=== PATIENT | male | born 1945 | race Caucasian/White ===

== ENCOUNTER 2016-10-12 19:13 | Inpatient (IN) | payer OTHER ==
[~2016-10-12] VITALS: Ht 182.9 cm; Wt 97.5 kg
[~2016-10-12 19:13] MED LIST: ASPIR 8181 MG PO; AVAPRO300 MG PO; BAYER GENUINE325 MG PO; CALCIUM 600-D 61 TAB PO; CALTRATE 600600 MG PO; CENTRUM1 TA2 PO; CRESTOR 5MG5 MG PO; CRESTOR20 MG PO; DILTIAZEM 24HR240 MG PO; EFFIENT10 MG PO; FISH OIL1000 MG PO; FLOVENT INH; IMDUR30 MG PO; PANTOPRAZOLE SO40 MG PO; PROTONIX 20MG T20 MG PO; RANEXA 500MG500 MG PO; RANEXA1000 MG PO; SINGULAIR10 M1 PO; VENTOLIN1 PUF INH; VIBRAMYCIN100 MG PO
--- NOTE | 2016-10-12 19:16 | NUR ---
PT IN [facility] FOR EKG
--- NOTE | 2016-10-12 19:34 | NUR ---
TRIAGE: PATIENT TO ER FROM HOME STATES "FEELING LIKE I DID WHEN I NEEDED MY STENT," HX 4 CARDIAC STENTS. EKG OBTAINED, NSR. PATIENT STATES "FEEL LIKE THERE IS AN EXTRA BEAT ON AND OFF X 3 WEEKS." PATIENT ALSO REPORTING INTERMITTENT SHARP CP, WAKING HIM FROM SLEEP. REPORTING EXERTIONAL SOB INCREASED X 3 WEEKS, HX ASTHMA. DENIES SOB. ALSO REPORTING BILATERAL PERIPHERAL EDEMA INC X FEW WEEKS. PLACED ON PRICE ECONOMIST ON ARRIVAL.
--- NOTE | 2016-10-12 19:53 | ED CARDIAC/CP/PALPITATIONS ---
History of Present Illness General Chief Complaint: Chest Pain Stated Complaint: CHEST PAIN X3 DAYS Source: patient Exam Limitations: no limitations Vital Signs & Intake/Output Vital Signs & Intake/Output Vital Signs Date Time Temp Pulse Resp B/P Pulse O2 O2 Flow FiO2 Ox Delivery Rate 10/14 1002 63 116/70 10/14 1001 63 116/70 10/14 1001 63 116/70 10/14 0801 97.8 63 18 116/70 95 Room Air 10/14 0800 Room Air 10/13 2242 62 116/68 10/13 2235 98.4 82 18 116/68 95 Room Air 10/13 1635 98.2 73 17 124/67 95 Room Air 10/13 1115 166/66 10/13 1115 166/66 10/13 1115 11666 ED Intake and Output 10/14 0000 10/13 1200 Intake Total 1200 Output Total Balance 1200 Intake, Oral 1200 Patient 215 lb Weight Allergies Coded Allergies: Penicillins (Intermediate, SWELLING 10/12/16) Reconcile Medications Aspirin (Ecotrin) 81 MG TABLET.DR 1 TAB PO DAILY HEART (Reported) CALCIUM CARBONATE/VITAMIN D3 (Calcium 600 + Vit D Tablet) 600 MG/400 IU TAB 1 TAB PO DAILY SUPPLEMENT (Reported) Diltiazem HCl (Diltiazem 24HR ER) 240 MG CAP.ER.24H 1 CAP PO AT BEDTIME HTN ( Reported) Irbesartan (Avapro) 300 MG TAB 1 TAB PO DAILY HTN (Reported) Isosorbide Mononitrate (Imdur) 30 MG TAB.ER.24H 1 TAB PO DAILY CHEST PAIN Magnesium Oxide (Magnesium) 500 MG CAPSULE 1 CAP PO DAILY SUPPLEMENT ( Reported) Montelukast Sodium (Singulair) 10 MG TABLET 1 TAB PO AT BEDTIME ASTHMA ( Reported) MULTIVITAMIN/IRON/FOLIC ACID (Centrum Complete Multivit Tab) 18 MG IRON-400 MCG TABLET 1 TAB PO DAILY SUPPLEMENT (Reported) OMEGA-3/DHA/EPA/FISH OIL ([place]-3 Fish Oil 1,000 MG Sftg) 300 MG-1,000 MG CAPSULE 1 TAB PO DAILY SUPPLEMENT (Reported) Pantoprazole Sodium (Protonix) 20 MG TABLET.DR 1 TAB PO DAILY AC ACID REFLUX (Reported) Ranolazine (Ranexa 500MG) 500 MG TAB.ER.12H 1 TAB PO BID HEART, CHEST PAIN ( Reported) Rosuvastatin Calcium (Crestor) 20 MG TABLET 1 TAB PO DAILY CHOLESTEROL ( Reported) Triage Note: TRIAGE: PATIENT TO ER FROM HOME STATES "FEELING LIKE I DID WHEN I NEEDED MY STENT," HX 4 CARDIAC STENTS. EKG OBTAINED, NSR. PATIENT STATES "FEEL LIKE THERE IS AN EXTRA BEAT ON AND OFF X 3 WEEKS." PATIENT ALSO REPORTING INTERMITTENT SHARP CP, WAKING HIM FROM SLEEP. REPORTING EXERTIONAL SOB INCREASED X 3 WEEKS, HX ASTHMA. DENIES SOB. ALSO REPORTING BILATERAL PERIPHERAL EDEMA INC X FEW WEEKS. PLACED ON VEGETABLE CUTTER ON ARRIVAL. Triage Nurses Notes Reviewed? yes HPI: Patient presents for evaluation of intermittent episodes of sharp left sided chest pain that began about 2 weeks ago or perhaps more. Patient states the episodes are getting stronger. In addition he experiences a left periscapular pain and a cold feeling in the left hand. The patient denies pain currently. His last episode occurred just after the EKG taken here in the emergency department. That particular episode lasted about 20 seconds. Patient states his episodes occur every 2-4 minutes and last seconds at a time. He denies any associated orthopnea diaphoresis or dyspnea but does state he has had intermittent severe exertional dyspnea when walking up and down his driveway. He is also noted bilateral lower extremity edema over the past 4 weeks that he has never had before. He is a nonsmoker. Past History Travel History Traveled to [place] past 21 day No Medical History Any Pertinent Medical History? see below for history Neurological: NONE EENT: NONE Cardiovascular: hypertension, 4 STENTS Respiratory: asthma Gastrointestinal: GERD Hepatic: NONE Renal: NONE Musculoskeletal: NONE Psychiatric: NONE Endocrine: NONE Blood Disorders: NONE Cancer(s): NONE COUNTER WAITER/Reproductive: NONE History of MRSA: No History of VRE: No History of CDIFF: No Surgical History Surgical History: non-contributory Psychosocial History Who do you live with Spouse What is your primary language Spanish Tobacco Use: Never used Family History Family History, If Any: FATHER (HTN, CAD, HLD, LEUKEMIA). . BROTHER (HTN, CAD, HLD, ND <50 Y/O). Hx Contributory? No Review of Systems Review of Systems Constitutional: Reports: no symptoms. EENTM: Reports: no symptoms. Respiratory: Reports: no symptoms. Cardiovascular: Reports: see HPI. GI: Reports: no symptoms. Genitourinary: Reports: no symptoms. Musculoskeletal: Reports: no symptoms. Skin: Reports: see HPI. Neurological/Psychological: Reports: no symptoms. Hematologic/Endocrine: Reports: no symptoms. Immunologic/Allergic: Reports: no symptoms. All Other Systems: Reviewed and Negative Physical Exam Physical Exam Cardiovascular: SEE BELOW Comments: Gen.: Well-nourished, well-developed, no acute respiratory distress. Head: Normocephalic, atraumatic. Eyes: Normal inspection bilaterally Ears: Normal inspection bilaterally Nose: Normal inspection Throat/mouth : Moist mucosa Neck: Supple, full range of motion, no goiter Heart: Regular rate and rhythm, no murmurs rubs or gallops Lungs: Clear to auscultation bilaterally with normal air entry Chest: Nontender Back: Normal range of motion Abdomen: Soft, nontender, nondistended, normal bowel sounds Extremities: Normal range of motion grossly, equal radial pulses, no cyanosis clubbing or edema Neurologic: Cranial nerves grossly intact, speech is clear Skin: warm and dry Psychiatric: Calm, cooperative, no apparent delusions or hallucinations Core Measures ACS in differential dx? Yes Severe Sepsis Present: No Septic Shock Present: No Progress Differential Diagnosis: aortic dissection, CAD, DYSRHYTHMIA, AORTIC DISSECTION, MUSCULOSKELETAL PAIN, ACID REFLUX Plan of Care: Orders Procedure Date/time Status Heart Healthy Diet 10/14 L Active Nothing by Mouth 10/14 B Complete Change service to 10/14 0800 Active Change service to 10/14 0739 Active DIPYRIDAMOLE STRESS W/NUC IMAG 10/14 UNK Active Current Medications Sig/Bravo Start time Last Medication Dose Stop Time Status Admin Enoxaparin Sodium 40 MG DAILY 10/14 1000 AC (Lovenox) Acetaminophen 650 MG Q6P PRN 10/13 0015 AC (Tylenol) Laboratory Tests 10/14/16 0350: Anion Gap 10, Estimated GFR > 60, BUN/Creatinine Ratio 10.0, Triglycerides 131, Cholesterol 116, LDL Cholesterol, Calc 52 L, HDL Cholesterol 38 L, Cholesterol /HDL Ratio 3 Diagnostic Imaging: Discussed w/RAD: CT Scan. Radiology Impression: PATIENT: VASILE HARRINGTON PRESENT AGE: 71 PATIENT ACCOUNT NO: [id number] : 47 LOCATION: [facility] ORDERING PHYSICIAN: AVEL BAUTISTA MD SERVICE DATE: 10/12/16 EXAM TYPE: CAT - CTA CHEST-AORTIC DISSECTION EXAMINATION: CT ANGIOGRAM CHEST CLINICAL INFORMATION: Chest pain, diminished right renal pole cyst. COMPARISON: CTA chest 07/24/2015 TECHNIQUE: Volumetric helical CT imaging was performed through the chest before and after the administration of 125 mL of Optiray 350 intravenous contrast. Extensive vascular post-processing including two-dimensional and three -dimensional reformatted images were created and reviewed on an independent workstation. DLP: 896.1 mGy-cm. FINDINGS: The aortic wall is not hyperdense on the noncontrast images. Review of the postcontrast images demonstrate a normal caliber thoracic aorta without evidence of acute dissection. A few calcifications are present at the aortic arch. There is extensive calcification and possible coronary artery stents placed within the left anterior descending and left circumflex coronary arteries. Calcifications versus stent are also noted within the right coronary artery. The heart size is mildly enlarged. There is no pericardial effusion. Although this study was not optimized for the pulmonary arteries there is no filling defect within the central, lobar, or segmental pulmonary vasculature. There is a large hiatal hernia. There are no pathologically enlarged mediastinal lymph nodes. The lungs are clear without focal consolidation or effusion. Multiple pulmonary nodules are redemonstrated as described on previous studies. The largest is located at the left lung base measuring 0.5 cm in size. This is similar compared to the 08/11/2015 study. Subpleural pulmonary nodule also identified at the left lung base posteriorly measuring 0.5 cm in diameter similar to the 08/11/2015 exam. Pulmonary nodule at the right lung base measures 0.5 cm in size is similar compared to the 2014 study. UPPER ABDOMEN: The imaged portions of the upper abdominal solid viscera are normal in appearance aside from the large hiatal hernia. Patient is status post cholecystectomy. OSSEOUS STRUCTURES: There are mild degenerative changes of the thoracic spine. IMPRESSION: 1. Normal caliber thoracic aorta without evidence for acute dissection. 2. Large hiatal hernia. 3. Clear lungs. No pneumonia. 4. Stable pulmonary nodules compared to 08/11/2015. DICTATED BY: ANTHONY PHILIP MD DATE/TIME DICTATED:10/12/162114 ORCHESTRA DIRECTOR:OPAL DATE/TIME TRANSCRIBED:10/12/162114 CONFIDENTIAL, DO NOT COPY WITHOUT APPROPRIATE AUTHORIZATION. <Electronically signed in Other Vendor System> SIGNED BY: ANTHONY PHILIP MD 10/12/162129 Initial ED EKG: NSR, rate (75), nonspecific ST T wave chg (FLAT t, rsr PRIME IN v2) Prior EKG: changed (SEE BELOW) Comments: Patient has a flattened T-wave and an RSR prime pattern in V2 on his EKG. Prior EKG does not show these changes. I suspect lead placement as the patient's current V2 lead appears very similar to V1. Departure Departure Disposition: STILL A PATIENT Condition: Stable Clinical Impression Primary Impression: Unstable angina Referrals: BLAIRE FONTENOT,ALEK Jackson (PCP/Family) Departure Forms: Customer Survey General Discharge Information Admission Note Spoke With: TYLER LEAHY MD Documentation of Exam: Documentation of any treatments & extenuating circumstances including Concerns Regarding Discharge (functional status, medication knowledge or non-compliance, living conditions, etc.) that warrant an admission rather than observation: This patient is a middle-aged male with known coronary artery disease and history of hypertension who presents with worsening chest pain episodes over the past 2 weeks. He is at high risk of a heart attack even his description of what appears to be crescendo angina. His pains are similar to pains he experienced prior to his coronary stenting. The patient is also describing worsening exertional dyspnea and intermittent heart palpitations. Given this I do not feel he is a good candidate for outpatient management as I feel his exertional dyspnea with him at risk of precipitating a heart attack and also make it very difficult for him to comply with outpatient treatment. His heart palpitations and chest pain episodes also necessitate continuous cardiac monitoring for the possibility of dysrhythmias. Cardiology consultation should be considered and a field the patient also requires echocardiogram and stress testing. Serial troponins and EKGs should also be obtained. The patient also has a history of hiatal hernia so a GI consult should be considered given the possibility that these pains are in fact due to acid reflux or the hiatal hernia. The patient will require a multiple day hospitalization. Critical Care Note Critical Care Note Critical Care Time: 30-74 min
--- NOTE | 2016-10-12 20:00 | NUR ---
PT BLOOD SENT TO THE LAB BL,SST,LAV
[2016-10-12 20:03] LABS: ABSOLUTE BASOPHIL COUNT 0 /CUMM (0.0-0.2); ABSOLUTE EOSINOPHIL COUNT 0.3 /CUMM (0.0-0.7); ABSOLUTE GRANULOCYTE CT 3.7 /CUMM (1.4-6.5); ABSOLUTE LYMPH COUNT 1.5 /CUMM (1.2-3.4); ABSOLUTE MONOCYTE COUNT 0.7 /CUMM (0.10-0.60); BASOPHIL % 0.3 % (0.0-2.0); GRANULOCYTE % 58.6 % (42.2-75.2); HEMATOCRIT 44.1 % (42-52); MEAN CORPUSCULAR HGB 30.9 PG (27.0-31.0); MEAN CORPUSCULAR VOLUME 90.9 FL (80.0-94.0); MEAN PLATELET VOLUME 8.1 FL (7.4-10.4); PLATELET COUNT 208 /CUMM (130-400); RBC DISTRIBUTION WIDTH 13.3 % (11.5-14.5); RED BLOOD CELL CT 4.85 /CUMM (4.70-6.10); WHITE BLOOD CELL COUNT 6.3 /CUMM (4.8-10.8)
--- NOTE | 2016-10-12 20:48 | NUR ---
PT TO CT SCAN
--- NOTE | 2016-10-12 21:00 | NUR ---
PT BACK FROM CT
--- NOTE | 2016-10-12 21:00 | NUR ---
PT A/O X4. RESP UNLABORED. DENIES CP AND SOB. NO APPARENT DISTRESS
--- NOTE | 2016-10-12 21:30 | CT SCAN REPORT ---
EXAMINATION: CT ANGIOGRAM CHEST CLINICAL INFORMATION: Chest pain, diminished right renal pole cyst. COMPARISON: CTA chest 07/24/2015 TECHNIQUE: Volumetric helical CT imaging was performed through the chest before and after the administration of 125 mL of Optiray 350 intravenous contrast. Extensive vascular post-processing including two-dimensional and three-dimensional reformatted images were created and reviewed on an independent workstation. DLP: 896.1 mGy-cm. FINDINGS: The aortic wall is not hyperdense on the noncontrast images. Review of the postcontrast images demonstrate a normal caliber thoracic aorta without evidence of acute dissection. A few calcifications are present at the aortic arch. There is extensive calcification and possible coronary artery stents placed within the left anterior descending and left circumflex coronary arteries. Calcifications versus stent are also noted within the right coronary artery. The heart size is mildly enlarged. There is no pericardial effusion. Although this study was not optimized for the pulmonary arteries there is no filling defect within the central, lobar, or segmental pulmonary vasculature. There is a large hiatal hernia. There are no pathologically enlarged mediastinal lymph nodes. The lungs are clear without focal consolidation or effusion. Multiple pulmonary nodules are redemonstrated as described on previous studies. The largest is located at the left lung base measuring 0.5 cm in size. This is similar compared to the 08/11/2015 study. Subpleural pulmonary nodule also identified at the left lung base posteriorly measuring 0.5 cm in diameter similar to the 08/11/2015 exam. Pulmonary nodule at the right lung base measures 0.5 cm in size is similar compared to the 08/11/2015 study. UPPER ABDOMEN: The imaged portions of the upper abdominal solid viscera are normal in appearance aside from the large hiatal hernia. Patient is status post cholecystectomy. OSSEOUS STRUCTURES: There are mild degenerative changes of the thoracic spine. IMPRESSION: 1. Normal caliber thoracic aorta without evidence for acute dissection. 2. Large hiatal hernia. 3. Clear lungs. No pneumonia. 4. Stable pulmonary nodules compared to 08/11/2015.
--- NOTE | 2016-10-12 22:05 | NUR ---
PT APPEARS COMFORTBALE. DENIES CP AND SOB. NO APPARENT DISTRESS. WILL CONTINUE TO MONITOR.
--- NOTE | 2016-10-12 23:07 | NUR ---
PT AMBULATORY TO BATHROOM. TOLERTED WELL
--- NOTE | 2016-10-12 23:27 | NUR ---
HOUSE STAFF AT BEDSIDE
[2016-10-12] MEDS ORDERED: MAGNESIUM500 M2 PO (23:47)
--- NOTE | 2016-10-13 00:11 | History & Physical ---
CAROLE FONTENOT,VAIBHAV 10/13/16 0009: General Information and HPI MD Statement: I have seen and personally examined VASILE HARRINGTON and documented this H&P. The patient is a 71 year old M who presented with a patient stated chief complaint of [intermittent chest pain associated with intermittent exertional dyspnea]. Source of Information: patient Exam Limitations: no limitations History of Present Illness: This is 71-year-old male with past medical history of CAD status post stent placement, hypertension, hyperlipidemia, GERD, hiatal hernia presented from home with chief complaint of intermittent chest pain 4 weeks associated with occasional exertional shortness of breath. Patient started having intermittent semi-dull pinprick like chest pain prior to Alexa. He's been experiencing this episode ache intermittent pain with each episode lasted for a few seconds and subsides spontaneously. For past couple of days he noted his pain episodes, more frequently sometimes even 4-5 times per minute. He claims that he had similar symptoms 10 years back when he was diagnosed with WV. His chest pain symptoms are not related with any physical exertion or food ingestion and come randomly. He also reports having occasional exertional dyspnea while walking up and down in his driveway (400 yards). He reports that he was fine this afternoon around 2 PM then he started having this episode again, which were more frequent about 4 or 5 episodes per minute with each episode lasted for a few seconds and subsided spontaneously. He felt that this time his symptoms were more stronger than in the past, so he came to ER for further evaluation. He also claims feeling extra heart beats occasionally and claims having bilateral lower extremity edema for past few weeks. He denies any chest pressure, dizziness, lightheadedness, shortness of breath at rest, nausea, vomiting, abdominal pain, urinary symptoms. He is following up with tax auditor Bebeto Inman MD. He was last evaluated by him in May 2016 at that time his workup was completely fine. As per the patient he had echocardiogram in last one year which was normal and had Holter monitor one and half years ago which was also noted normal. His echo done at [place] in February 2014 revealed normal EF of 60-65%. Patient had previous stent placement to. This marginal artery and circumflex AV groove artery 10 years ago. His repeat cardiac cath done in October 2013 revealed 20% left main coronary artery disease, 40% LAD disease, 40% and 50% sequential for staghorn renal artery disease, diffuse restenosis of circumflex AV groove stent status post restenting and 30% RCA disease. Allergies/Medications Allergies: Coded Allergies: Penicillins (Intermediate, SWELLING 10/12/16) Home Med list Aspirin (Ecotrin) 81 MG TABLET.DR 1 TAB PO DAILY HEART (Reported) CALCIUM CARBONATE/VITAMIN D3 (Calcium 600 + Vit D Tablet) 600 MG/400 IU TAB 1 TAB PO DAILY SUPPLEMENT (Reported) Diltiazem HCl (Diltiazem 24HR ER) 240 MG CAP.ER.24H 1 CAP PO AT BEDTIME HTN ( Reported) Irbesartan (Avapro) 300 MG TAB 1 TAB PO DAILY HTN (Reported) Isosorbide Mononitrate (Imdur) 30 MG TAB.ER.24H 1 TAB PO DAILY CHEST PAIN Magnesium Oxide (Magnesium) 500 MG CAPSULE 1 CAP PO DAILY SUPPLEMENT ( Reported) Montelukast Sodium (Singulair) 10 MG TABLET 1 TAB PO AT BEDTIME ASTHMA ( Reported) MULTIVITAMIN/IRON/FOLIC ACID (Centrum Complete Multivit Tab) 18 MG IRON-400 MCG TABLET 1 TAB PO DAILY SUPPLEMENT (Reported) OMEGA-3/DHA/EPA/FISH OIL ([place]-3 Fish Oil 1,000 MG Sftg) 300 MG-1,000 MG CAPSULE 1 TAB PO DAILY SUPPLEMENT (Reported) Pantoprazole Sodium (Protonix) 20 MG TABLET.DR 1 TAB PO DAILY AC ACID REFLUX (Reported) Ranolazine (Ranexa 500MG) 500 MG TAB.ER.12H 1 TAB PO BID HEART, CHEST PAIN ( Reported) Rosuvastatin Calcium (Crestor) 20 MG TABLET 1 TAB PO DAILY CHOLESTEROL ( Reported) Compliance With Home Meds: GOOD Past History Travel History Traveled to [place] past 21 day No Medical History Neurological: NONE EENT: NONE Cardiovascular: CAD, hypertension, hyperlipidemia, 4 STENTS Respiratory: asthma Gastrointestinal: GERD Hepatic: NONE Renal: NONE Musculoskeletal: NONE Psychiatric: NONE Endocrine: NONE Blood Disorders: NONE Cancer(s): NONE REFRIGERATION MECHANIC/Reproductive: NONE History of MRSA: No History of VRE: No History of CDIFF: No Surgical History Surgical History: cholecystectomy, hernia repair-inguinal ECHO Results (as available) Date of last Echo 02/23/14 EF% 60 Past Family/Social History Family History Relations & Conditions if any FATHER (HTN, CAD, HLD, LEUKEMIA). . BROTHER (HTN, CAD, HLD, W[place] <50 Y/O). Psychosocial History Where do you live? Home Who Do You Live With? spouse Services at Home: None Primary Language: Bangladeshi Smoking Status: Never Smoked ETOH Use: occasional use Illicit Drug Use: denies illicit drug use Living Will? yes Functional Ability ADLs Independent: dressing, eating, toileting, bathing. Ambulation: independent IADLs Independent: shopping, housework, finances, food prep, telephone, transportation , medication admin. Review of Systems Review of Systems Constitutional: Reports: see HPI. Exam & Diagnostic Data Last 24 Hrs of Vital Signs/I&O Vital Signs Date Time Temp Pulse Resp B/P Pulse O2 O2 Flow FiO2 Ox Delivery Rate 10/12 2254 97.1 72 18 145/90 96 10/12 2100 96.7 76 18 145/74 10/12 1927 98.4 75 18 151/83 97 Room Air Intake & Output 10/13 0800 10/13 0000 10/12 1600 Intake Total Output Total Balance Patient 215 lb Weight Physical Exam General Appearance Alert, Oriented X3, Cooperative, No Acute Distress Skin No Rashes HEENT Atraumatic, PERRLA, EOMI, Mucous Membr. moist/pink Neck Supple, No JVD Lymphatic Cervical nl Cardiovascular Regular Rate, Normal S1, Normal S2, No Murmurs Lungs Clear to Auscultation, Normal Air Movement Abdomen Normal Bowel Sounds, Soft Neurological Normal Speech, Strength at 5/5 X4 Ext, Normal Tone, Sensation Intact, Cranial Nerves 3-12 NL Extremities No Edema, Normal Pulses Vascular Pulses Symmetrical Last 24 Hrs of Labs/Toby: Laboratory Tests 10/12/161999: Anion Gap 10, Estimated GFR > 60, BUN/Creatinine Ratio 11.8, Glucose 82, Calcium 9.1, Magnesium 2.1, Troponin I < 0.01, CBC w Diff NO MAN DIFF REQ, RBC 4.85, MCV 90.9, MCH 30.9, RDW 13.3, MPV 8.1, Gran % 58.6, Lymphocytes % 24.2, Monocytes % 11.9 H, Eosinophils % 5.0, Basophils % 0.3, Absolute Granulocytes 3.7, Absolute Lymphocytes 1.5, Absolute Monocytes 0.7 H, Absolute Eosinophils 0.3, Absolute Basophils 0, PUBS MCHC 34.0 Diagnostic Data EKG Results Normal sinus rhythm with heart rate of 75, no acute ST-T wave changes, QTC 429 CXR Results NONE Other Results CTA chest aortic dissection protocol: IMPRESSION: 1. Normal caliber thoracic aorta without evidence for acute dissection. 2. Large hiatal hernia. 3. Clear lungs. No pneumonia. 4. Stable pulmonary nodules compared to 08/11/2015. Assessment/Plan Assessment: This is 71-year-old male with past medical history of CAD status post stenting, hypertension, hyperlipidemia, GERD, hiatal hernia presented to ED with chief complaint of 4 weeks history of intermittent sharp chest pain associated with occasional palpitation and shortness of breath. On evaluation patient noted chest pain free with his EKG normal and first set of troponin negative. Will admit to telemetry floor. Possibility of symptoms related with GERD also need to be ruled out as patient has large hiatal hernia 1. Atypical chest pain - Patient has strong family history, the nature of chest pain is similar to his first [place], and height team's score of 4 suggestive of 20% risk of all cause mortality related with [place], will admit patient to telemetry -Continue shelter monitor for any arrhythmia - Serial troponin and EKG to rule out underlying coronary artery disease - Defer echocardiogram to primary tax auditor - Continue aspirin, statin, Imdur and Ranexa - Consider adding beta león - Cardiology consult in a.m. 2. Palpitation - Continue shelter monitor - Continue Cardizem 240 mg daily 3. Hypertension - Continue home dose ARB 4. Hyperlipidemia - Continue statin 5. GERD/hiatal hernia - Continue Prilosec - If symptoms persist and cardiology workup negative consider GI consult 6. History of asthma Continue Singulair 7. DVT prophylaxis Subcutaneous Lovenox 8. Full code As Ranked By This Provider Problem List: 1. Palpitations 2. Chest pain Core Measures/Miscellaneous Acute Coronary Syndrome ACS Diagnosis: No Cerebrovascular Accident CVA/TIA Diagnosis: No Congestive Heart Failure CHF Diagnosis: No Venous Thromboembolism VTE Risk Factors: Age > 40 VTE Prophylaxis Ordered Inpt: [facility] d/t: No contraindications No VTE Pharm Prophylaxis d/t: No contraindications VTE Diagnosis: No VTE Type: NONE VTE Confirmed by (Test): NONE Severe Sepsis Severe Sepsis Present: No Septic Shock Septic Shock Present: No Miscellaneous Documentation Attending Case Discussed With: TYLRE LEAHY MD Primary Care Physician: ALEK RUDD MD Patient sees these Specialists Freight Agent Dr. Bebeto Inman Level of Patient Care: Telemetry Consults Needed: Consulting Specialty: Cardiology TYLER LEAHY 10/13/16 0208: Attending MD Review Statement Attending Statement Attending MD Statement: examined this patient, discuss w/resident/PA/PROFESSOR OF ENVIRONMENTAL STUDIES, agreed w/resident/PA/PROFESSOR OF ENVIRONMENTAL STUDIES, reviewed EMR data (avail), reviewed images, amended to note Attending Assessment/Plan: Cc: Chest pain PMHx: CAD S/P stent, recent stress test October 2013, had dysrhythmia, HTN, HLD , asthma Patient has been noticing on and off chest pain since one month, sometimes pinprick sensations or sometimes heaviness lasting for a few seconds and resolving on its own, no aggravating or relieving factors. Patient does not notice this pain while doing any activity, always at rest. Initially when the pain started 4 weeks back it was radiating to jaw and left arm and subscapular region, but currently it's nonradiating. Patient has some days without chest pain, and some days multiple episodes. But on the day of admission patient started to notice increased frequency of these episodes since 4 PM, feeling restless so he came to ER around 7 PM. He also noticed intermittent extra beats, occasional dyspnea on exertion, on and off leg swellings. Vitals: Afebrile, HR, RR, BP, O2 saturation within acceptable range. For examination: A O 3, anxious, no acute distress, neck supple, no lymphadenopathy , no JVD, mucosa moist, CVS: S1-S2, RRR, No murmurs RS: Clear air entry bilaterally present. Abdomen: Soft, NT, ND, no obvious masses, bowel sounds present, no dependent edema, no obvious skin rashes or inflammation, no focal neurological deficit. Labs: CBC, BMP, troponin within normal range. CTA chest: No obvious acute abnormality. Large hiatus hernia. EKG: Normal sinus rhythm, no ST T-wave changes. Assessment and plan #1 atypical chest pain: At rest, no aggravating or relieving factors. Given patient's extensive history of CAD, admitted with suspicion of unstable angina, consult cardiology in a.m., serial EKG, serial troponin, telemetry monitoring. Further workup according to cardiology opinion, patient is known to Dr. Hinkle. Patient has hiatus hernia, which can be contributing factor for pain. Continue aspirin and statin #2 HTN, HLD, asthma, hiatus hernia and history of CAD status post stents: Continue aspirin, diltiazem, irbesartan, Imdur, Ranexa, Crestor, Singulair, Protonix. #3 continue DVT prophylaxis with Lovenox, adequate pain control.
--- NOTE | 2016-10-13 00:28 | NUR ---
BED ASSIGNED 180-02
--- NOTE | 2016-10-13 00:52 | NUR ---
PT A/O X4. RESP UNLABORED. DENIES CP AND SOB. SKIN WARM AND DRY. NO APPARENT DISTRESS.
[2016-10-13 01:41] VITALS: BP 137/82
--- NOTE | 2016-10-13 02:10 | Admission Certification ---
Admission Certification Certification Statement - As attending physician, I certify that at the time of - admission, based on clinical presentation, severity of - symptoms, need for further diagnostic testing and - therapeutic interventions, and risk of adverse outcomes - without in-hospital treatment, in my clinical assessment, - this patient requires an acute hospital stay for a minimum - of two nights or longer. I have also considered psychsocial - factors such as support system, advanced age, financial - issues, cognitive issues, and failed out-patient treatments, - past re-admission history, safety of patient, and lack of - compliance as applicable. Specific rationale supporting this admission is: Chest pain, suspected unstable angina, history of coronary artery disease status post stenting
[2016-10-13 08:33] VITALS: BP 118/69
--- NOTE | 2016-10-13 11:27 | PN- Att Addend ---
Attending Addendum Attending Brief Note 71-year-old male with past medical history significant for coronary artery disease status post stents, hypertension, hyperlipidemia and asthma has been admitted on the floor for progressive intermittent chest pain for the last couple of months. He was seen and examined on the bedside, lying comfortably and chest pain-free. His serial troponins and EKGs were normal. Vitals stable and unremarkable physical examination. He follows up with Dr. Inman as his code machine operator. Will follow further recommendations from the code machine operator. Patient previously had episodes of dysrhythmias and reportedly improved by taking magnesium oxide. We will continue the rest of his cardiac medications and will continue to monitor over the telemetry for the next 24 hours.
--- NOTE | 2016-10-13 15:55 | Cons- Cardiology ---
General Information and HPI Consulting Request Date of Consult: 10/13/16 Requested By: TYLER LEAHY MD Reason for Consult: Chest pain syndrome; history of coronary artery disease Source of Information: patient Exam Limitations: no limitations History of Present Illness: The patient is a 71-year-old male, appearing other than his stated age, who is regular director of rehabilitation is Dr. Bebeto Ro who I am covering for today. The patient has a past medical history of coronary artery disease, status post multiple stents, hypertension, hyperlipidemia, reflux disease, etc. His last cardiac catheterization 2 years ago showed patent stents. The patient is now admitted to the hospital via the emergency room with intermittent episodes of chest discomfort over the last 4 weeks. Initially, the symptoms were exertional, more recently, they have also occurred at rest. By history, there appeared to be multiple over left mapping symptoms, some are suggestive of ventricular ectopy, others may be related to musculoskeletal symptoms, however, there are some symptoms which may be similar to his pre-stent anginal symptoms as well. Since being admitted, the patient has been asymptomatic. The symptoms began prior to Alexa. In addition, he has noted some exertional dyspnea. He does have a history of known ventricular ectopy as well. The ventricular ectopy symptoms did improved after the institution of oral magnesium supplements. Interestingly, the patient notes that he had resolution of the symptoms for. Of time after his chest CTA was performed yesterday. Allergies/Medications Allergies: Coded Allergies: Penicillins (Intermediate, SWELLING 10/12/16) Home Med List: Aspirin (Ecotrin) 81 MG TABLET.DR 1 TAB PO DAILY HEART (Reported) CALCIUM CARBONATE/VITAMIN D3 (Calcium 600 + Vit D Tablet) 600 MG/400 IU TAB 1 TAB PO DAILY SUPPLEMENT (Reported) Diltiazem HCl (Diltiazem 24HR ER) 240 MG CAP.ER.24H 1 CAP PO AT BEDTIME HTN ( Reported) Irbesartan (Avapro) 300 MG TAB 1 TAB PO DAILY HTN (Reported) Isosorbide Mononitrate (Imdur) 30 MG TAB.ER.24H 1 TAB PO DAILY CHEST PAIN Magnesium Oxide (Magnesium) 500 MG CAPSULE 1 CAP PO DAILY SUPPLEMENT ( Reported) Montelukast Sodium (Singulair) 10 MG TABLET 1 TAB PO AT BEDTIME ASTHMA ( Reported) MULTIVITAMIN/IRON/FOLIC ACID (Centrum Complete Multivit Tab) 18 MG IRON-400 MCG TABLET 1 TAB PO DAILY SUPPLEMENT (Reported) OMEGA-3/DHA/EPA/FISH OIL ([place]-3 Fish Oil 1,000 MG Sftg) 300 MG-1,000 MG CAPSULE 1 TAB PO DAILY SUPPLEMENT (Reported) Pantoprazole Sodium (Protonix) 20 MG TABLET.DR 1 TAB PO DAILY AC ACID REFLUX (Reported) Ranolazine (Ranexa 500MG) 500 MG TAB.ER.12H 1 TAB PO BID HEART, CHEST PAIN ( Reported) Rosuvastatin Calcium (Crestor) 20 MG TABLET 1 TAB PO DAILY CHOLESTEROL ( Reported) Current Medications: Current Medications Sig/Bravo Start time Last Medication Dose Route Stop Time Status Admin Acetaminophen 650 MG Q6P PRN 10/13 0015 AC PO Aspirin Buffered 81 MG DAILY 10/13 1000 AC 10/13 PO 1115 Atorvastatin Calcium 80 MG 1700 10/13 1700 AC PO Diltiazem HCl 240 MG AT BEDTIME 10/13 0100 AC 10/13 PO 0101 Enoxaparin Sodium 40 MG DAILY 10/14 1000 AC SC Fish Oil 1,050 MG DAILY 10/13 1000 AC 10/13 PO 1116 Isosorbide 30 MG DAILY 10/13 1000 AC 10/13 Mononitrate PO 1115 Losartan Potassium 100 MG DAILY 10/13 1000 AC 10/13 PO 1115 Magnesium Oxide 400 MG DAILY 10/13 1000 AC 10/13 PO 1115 Montelukast Sodium 10 MG AT BEDTIME 10/13 0100 AC 10/13 PO 0101 Omeprazole 40 MG DAILY AC 10/13 0700 AC 10/13 PO 0751 Ranolazine 500 MG BID 10/13 0100 AC 10/13 PO 1115 Past History Travel History Traveled to [place] past 21 day No Medical History Blood Transfusion Hx: No Neurological: NONE EENT: NONE Cardiovascular: CAD, hypertension, hyperlipidemia, 4 STENTS Respiratory: asthma Gastrointestinal: GERD Hepatic: NONE Renal: NONE Musculoskeletal: NONE Psychiatric: NONE Endocrine: NONE Blood Disorders: NONE Cancer(s): NONE LANGUAGE ARTS TEACHER/Reproductive: NONE Surgical History Surgical History: cholecystectomy, hernia repair-inguinal Family History Relations & Conditions If Any: FATHER (HTN, CAD, HLD, LEUKEMIA). . BROTHER (HTN, CAD, HLD, [place] <50 Y/O). Psychosocial History Where Do You Live? Home Who Do You Live With? spouse Services at Home: None Primary Language: Georgian Smoking Status: Never Smoked ETOH Use: occasional use Illicit Drug Use: denies illicit drug use Living Will? yes Functional Ability ADLs Independent: dressing, eating, toileting, bathing. Ambulation: independent IADLs Independent: shopping, housework, finances, food prep, telephone, transportation , medication admin. ECHO Results (as available) Date of last Echo 02/23/14 EF% 60 Exam & Diagnostic Data Vital Signs and I&O Vital Signs Date Time Temp Pulse Resp B/P Pulse O2 O2 Flow FiO2 Ox Delivery Rate 10/13 1115 166/66 10/13 1115 166/66 10/13 1115 116/66 10/13 0833 97.9 69 18 118/69 94 Room Air 10/13 0141 97.6 77 20 137/82 95 Room Air 10/13 0053 97.9 77 18 138/69 96 10/12 2254 97.1 72 18 145/90 96 10/12 2100 96.7 76 18 145/74 10/12 1927 98.4 75 18 151/83 97 Room Air Intake & Output 10/13 1600 10/13 0800 10/13 0000 10/12 1600 10/12 0800 10/12 0000 Intake Total 720 Output Total Balance 720 Intake, Oral 720 Patient 215 lb 215 lb Weight Physical Exam: General Appearance Alert, Oriented X3, Cooperative, No Acute Distress Skin normal HEENT normal Neck Supple, No JVD, carotid shows normal bilaterally with no bruits Cardiovascular Regular Rate, Normal S1, Normal S2, 1/6 systolic murmur Lungs Clear to Auscultation, and percussion bilaterally; point tenderness noted at the mid left sternal border Abdomen Normal Bowel Sounds, Soft Neurological nonfocal Extremities No Edema, Normal Pulses Vascular Pulses Symmetrical Labs/Toby Results: Laboratory Tests 10/13 10/13 10/12 0610 0310 1999 Chemistry Sodium (137 - 145 mmol/L) 141 Potassium (3.5 - 5.1 mmol/L) 4.2 Chloride (98 - 107 mmol/L) 106 Carbon Dioxide (22 - 30 mmol/L) 25 Anion Gap (5 - 16) 10 BUN (9 - 20 mg/dL) 13 Creatinine (0.7 - 1.2 mg/dL) 1.1 Estimated GFR (>60 ml/min) > 60 BUN/Creatinine Ratio (7 - 25 %) 11.8 Glucose (65 - 99 mg/dL) 82 Calcium (8.4 - 10.2 mg/dL) 9.1 Magnesium (1.6 - 2.3 mg/dL) 2.1 Troponin I (<0.11 ng/ml) < 0.01 < 0.01 < 0.01 Hematology CBC w Diff NO MAN DIFF REQ WBC (4.8 - 10.8 /CUMM) 6.3 RBC (4.70 - 6.10 /CUMM) 4.85 Hgb (14.0 - 18.0 G/DL) 15.0 Hct (42 - 52 %) 44.1 MCV (80.0 - 94.0 FL) 90.9 MCH (27.0 - 31.0 PG) 30.9 RDW (11.5 - 14.5 %) 13.3 Plt Count (130 - 400 /CUMM) 208 MPV (7.4 - 10.4 FL) 8.1 Gran % (42.2 - 75.2 %) 58.6 Lymphocytes % (20.5 - 51.1 %) 24.2 Monocytes % (1.7 - 9.3 %) 11.9 H Eosinophils % (0 - 5 %) 5.0 Basophils % (0.0 - 2.0 %) 0.3 Absolute Granulocytes (1.4 - 6.5 /CUMM) 3.7 Absolute Lymphocytes (1.2 - 3.4 /CUMM) 1.5 Absolute Monocytes (0.10 - 0.60 /CUMM) 0.7 H Absolute Eosinophils (0.0 - 0.7 /CUMM) 0.3 Absolute Basophils (0.0 - 0.2 /CUMM) 0 PUBS MCHC (33.0 - 37.0 G/DL) 34.0 Diagnostic Data Other Results CTA chest: IMPRESSION: 1. Normal caliber thoracic aorta without evidence for acute dissection. 2. Large hiatal hernia. 3. Clear lungs. No pneumonia. 4. Stable pulmonary nodules compared to 08/11/2015. Assessment/Plan Assessment/Plan Assessment: 1. Chest pain syndrome; rule out cardiac etiology 2. Known coronary artery disease, status post multiple stents, last catheterization 2013 (per the patient) with patent stents at that time 3. History of ventricular ectopy 4. Hypertension 5. Hyperlipidemia Recreations: -Continue current medical regimen -Serial troponins and serial EKGs; thus far, the patient's blood work and ECGs have been unremarkable. -Echocardiogram pending -Please keep the patient nothing by mouth after midnight. -The patient remains stable, I suspect he can undergo far of nuclear stress testing and further evaluation as an outpatient. -Please ambulate the patient later today. -Further plans in the morning. Consult Acknowledgment - Thank you for your consult request.
[2016-10-13 16:35] VITALS: BP 124/67
[2016-10-13 22:35] VITALS: BP 116/68
[2016-10-14 08:01] VITALS: BP 116/70
--- NOTE | 2016-10-14 09:59 | PN- Housestaff ---
JOSEFINA FONTENOT,SHRUTI 10/14/16 0958: Subjective Follow-up For: Chest pain Tele-Events Since Last Visit: Normal sinus rhythm no telemetry events Subjective: Patient lying comfortably on bed. Currently nothing by mouth for a possible stress test. Denies chest pain since admission. Latest EKG does not show evidence of ST-T wave changes. Review of Systems Constitutional: Reports: see HPI. Objective Last 24 Hrs of Vital Signs/I&O Vital Signs Date Time Temp Pulse Resp B/P Pulse O2 O2 Flow FiO2 Ox Delivery Rate 10/14 1002 63 116/70 10/14 1001 63 116/70 10/14 1001 63 116/70 10/14 0801 97.8 63 18 116/70 95 Room Air 10/14 0800 Room Air 10/13 2242 62 116/68 10/13 2235 98.4 82 18 11668 95 Room Air 10/13 1635 98.2 73 17 124/67 95 Room Air Intake & Output 10/14 1600 10/14 0800 10/14 0000 Intake Total 0 480 Output Total Balance 0 480 Intake, IV 0 Intake, Oral 0 480 Number 0 Bowel Movements Physical Exam General Appearance: Alert, Oriented X3, Cooperative, No Acute Distress Skin: No Rashes Cardiovascular: Regular Rate, Normal S1, Normal S2, No Murmurs Lungs: Clear to Auscultation Abdomen: Normal Bowel Sounds, Soft Extremities: No Clubbing, No Cyanosis, No Edema Current Medications: Current Medications Sig/Bravo Start time Last Medication Dose Route Stop Time Status Admin Acetaminophen 650 MG Q6P PRN 10/13 0015 DCD PO Aspirin Buffered 81 MG DAILY 10/13 1000 DCD 10/13 PO 1115 Atorvastatin Calcium 80 MG 1700 10/13 1700 DCD 10/13 PO 1702 Diltiazem HCl 240 MG AT BEDTIME 10/13 0100 DCD 10/13 PO 2242 Enoxaparin Sodium 40 MG DAILY 10/14 1000 DCD SC Fish Oil 1,050 MG DAILY 10/13 1000 DCD 10/14 PO 1002 Influenza Virus 0.5 ML ONCE ONE 10/14 0815 DC 10/14 Vaccine IM 10/14 0816 1006 Isosorbide 30 MG DAILY 10/13 1000 DCD 10/13 Mononitrate PO 1115 Losartan Potassium 100 MG DAILY 10/13 1000 DCD 10/13 PO 1115 Magnesium Oxide 400 MG DAILY 10/13 1000 DCD 10/14 PO 1001 Montelukast Sodium 10 MG AT BEDTIME 10/13 0100 DCD 10/13 PO 2242 Omeprazole 40 MG DAILY AC 10/13 0700 DCD 10/14 PO 1005 Ranolazine 500 MG BID 10/13 0100 DCD 10/13 PO 2242 Last 24 Hrs of Lab/Toby Results Last 24 Hrs of Labs/Mics: Laboratory Tests 10/14/16 0350: Anion Gap 10, Estimated GFR > 60, BUN/Creatinine Ratio 10.0, Triglycerides 131, Cholesterol 116, LDL Cholesterol, Calc 52 L, HDL Cholesterol 38 L, Cholesterol /HDL Ratio 3 Assessment/Plan Assessment: This is 71-year-old male with past medical history of CAD status post stent placement, hypertension, hyperlipidemia, GERD, hiatal hernia presented from home with chief complaint of intermittent chest pain 4 weeks 1. Unstable angina: - Patient admitted to telemetry and ACS ruled out with negative troponins 3 and new EKG changes - hE has CAD and stents with recent cardiac cath done 2 years ago showed patent stents. - He will need a repeat echocardiogram which can be done as an outpatient as patient remained asymptomatic and this test are negative - Patient has history of asthma and he would not be a candidate for dipyridamole Persantine stress test. He will need sestamibi scan which can be done his primary cloth doffer office. -No evidence of active dissection - He is not on beta blockers because of history of asthma - We will continue his aspirin, statins 2. Hypertension: Was continued on his home medications - The pressure within acceptable range Full CODE STATUS dvt prophylaxis with Lovenox Problem List: 1. Unstable angina Pain Ratin Pain Location: NO PAIN Pain Goal: Remain pain free Pain Plan: remined pain free Tomorrow's Labs & Rationales: patient discharged today Consulting Request: Consulting Specialty: Cardiology RUPESH HOPKINS MD 10/14/16 1040: Attending MD Review Statement Attending Statement Attending MD Statement: examined this patient, discuss w/resident/PA/BALLET PROFESSOR, agreed w/resident/PA/BALLET PROFESSOR, reviewed EMR data (avail), discussed with nursing, discussed with case mgmt Attending Assessment/Plan: Patient feels completely well. He's had no more episodes of chest discomfort. He was evaluated by Hany Frias MD. He has known coronary artery disease , he had 4 stents done a while ago and then he had a cath in 2013 which showed the stents were patent. The plan is discharge with outpatient stress test and outpatient echocardiogram. He knows he needs to follow-up with Dr. Bebeto Ro for the same. He is not on a beta león because of a history of asthma.
[2016-10-14 10:02] VITALS: BP 116/70
--- NOTE | 2016-10-14 10:17 | Patient Discharge Instructions ---
Discharge Instructions General Discharge Information You were seen/treated for: COPD exacerbation Special Instructions: 1. Follow up with PCP in a week upon discharge 2. Pls follow up with Dr. Inman for a stress test. Pls call his office to make a follow up appointment Diet Recommended Diet: Regular Activity Full Activity/No Limits: Yes Acute Coronary Syndrome Inclusion Criteria At DC or during hospital stay patient has or had the following: ACS DIAGNOSIS No Discharge Core Measures Meds if any: Prescribed or Continued at Discharge Meds if any: NOT Prescribed or Continued at Discharge Congestive Heart Failure Inclusion Criteria At DC or during hospital stay patient has or had the following: CHF DIAGNOSIS No Discharge Core Measures Meds if any: Prescribed or Continued at Discharge Meds if any: NOT Prescribed or Continued at Discharge Cerebrovascular accident Inclusion Criteria At DC or during hospital stay patient has or had the following: CVA/TIA Diagnosis No Discharge Core Measures Meds if any: Prescribed or Continued at Discharge Meds if any: NOT Prescribed or Continued at Discharge Venous thromboembolism Inclusion Criteria VTE Diagnosis No VTE Type NONE VTE Confirmed by (Test) NONE Discharge Core Measures - Per Current guidelines, there needs to be overlap - treatment for the first 5 days of Warfarin therapy. - If discharged on Warfarin prior to 5 days of - overlap therapy, the patient will need to be - assessed for post discharge needs including - *Post discharge parental anticoagulation - *Warfarin and/or parental anticoagulation education - *Follow up date to check INR post discharge At least 5 days overlap therapy as Inpatient No Meds if any: Prescribed or Continued at Discharge Note: Overlap Therapy is Warfarin and Anticoagulant Meds if any: NOT Prescribed or Continued at Discharge
--- NOTE | 2016-10-14 10:28 | PN- Housestaff ---
Assessment/Plan Consulting Request: Consulting Specialty: Cardiology
--- NOTE | 2016-10-14 10:28 | Discharge Summary ---
Visit Information Visit Dates Admission Date: 10/12/16 Discharge Date: 10/14/16 Hospital Course Course Attending Physician: KELLIE FONTENOT,RUPESH Good Primary Care Physician: BLAIRE FONTENOT,ALEK Jackson Consulting Request: Consulting Specialty: Cardiology Hospital Course: This is 71-year-old male with past medical history of CAD status post stent placement, hypertension, hyperlipidemia, GERD, hiatal hernia presented from home with chief complaint of intermittent chest pain 4 weeks associated with occasional exertional shortness of breath. Patient had previous stent placement to Marginal artery and circumflex AV groove artery 10 years ago. His repeat cardiac cath done in October 2013 revealed 20% left main coronary artery disease, 40% LAD disease, 40% and 50% sequential for staghorn renal artery disease, diffuse restenosis of circumflex AV groove stent status post restenting and 30% RCA disease. Vitals and admission blood pressure 151/83, respiration 18, pulse rate 75, temperature 98.4, oxygen saturation 97% on room air. Labs and admission WBC 6.3, hemoglobin 15, hematocrit 44.1, platelets 208, sodium 141, potassium 4.2, BUN 13, creatinine 1.1, troponins less than 0.01. EKG: Normal sinus rhythm with heart rate of 75, no acute ST-T wave changes, QTC 429 Hospital course 1. Unstable angina: Patient was admitted to telemetry. Serial troponins and EKGs were checked which were negative for acute HI. CTA dissection protocol was done in emergency department which showed normal caliber thoracic aorta without evidence of aortic dissection. He was continued on his home medications including aspirin statins Imdur and Ranexa. Patient was not on beta blockers given his history of asthma. Patient remained symptom-free since admission. Was evaluated by his ice cream freezer who agreed that symptoms are atypical for ischemic etiology and similar symptoms in the past has revealed a small vessel disease on prior catheter without repeat PCI. After discussion of treatment options with patient decision was made to obtain outpatient nuclear stress test, echocardiogram and Holter. He will follow-up with his primary ice cream freezer within 7 days upon discharge. He was also recommended to return to ER if any new or recurrent symptoms occur. 2. Hypertension: Was continued on losartan 3. Hyperlipidemia: Statins continued Full CODE STATUS dvt prophylaxis with Lovenox Allergies: Coded Allergies: Penicillins (Intermediate, SWELLING 10/12/16) Significant Procedures: CAT - CTA CHEST-AORTIC DISSECTION 10/12/16-1947 1. Normal caliber thoracic aorta without evidence for acute dissection. 2. Large hiatal hernia. 3. Clear lungs. No pneumoni Laboratory Tests 10/14 0350 Chemistry Sodium (137 - 145 mmol/L) 141 Potassium (3.5 - 5.1 mmol/L) 4.0 Chloride (98 - 107 mmol/L) 107 Carbon Dioxide (22 - 30 mmol/L) 24 Anion Gap (5 - 16) 10 BUN (9 - 20 mg/dL) 12 Creatinine (0.7 - 1.2 mg/dL) 1.2 Estimated GFR (>60 ml/min) > 60 BUN/Creatinine Ratio (7 - 25 %) 10.0 Triglycerides (<150 mg/dL) 131 Cholesterol (< 200 MG/DL) 116 LDL Cholesterol, Calc (65 - 129 mg/dL) 52 L HDL Cholesterol (40 - 60 mg/dL) 38 L Cholesterol/HDL Ratio (0.00 - 4.88 %) 3 Disposition Summary Disposition Principal Diagnosis: 1. Unstable angina Additional Diagnosis: 1. HTN 2. HLD Discharge Disposition: home or self care Discharge Instructions General Discharge Information Code Status: Full Code Patient's Diet: Heart healthy Patient's Activity: as tolerated Follow-Up Instructions/Appts: 1. Follow up with PCP in a week upon discharge 2. Pls follow up with Dr. Inman for a stress test. Pls call his office to make a follow up appointment Medications at Discharge Discharge Medications: Continue taking these medications: Montelukast Sodium (Singulair) 10 MG TABLET 1 Tablet ORAL AT BEDTIME Comments: Last Taken: 10/13/16 Time: 10PM Irbesartan (Avapro) 300 MG TAB 1 Tablet ORAL DAILY Diltiazem HCl (Diltiazem 24HR ER) 240 MG CAP.ER.24H 1 Capsule ORAL AT BEDTIME Comments: Last Taken: 10/13/16 Time: 10PM OMEGA-3/DHA/EPA/FISH OIL (Lawtey-3 Fish Oil 1,000 MG Sftg) 300 MG-1,000 MG CAPSULE 1 Tablet ORAL DAILY MULTIVITAMIN/IRON/FOLIC ACID (Centrum Complete Multivit Tab) 18 MG IRON-400 MCG TABLET 1 Tablet ORAL DAILY Ranolazine (Ranexa 500MG) 500 MG TAB.ER.12H 1 Tablet ORAL TWICE DAILY Aspirin (Ecotrin) 81 MG TABLET.DR 1 Tablet ORAL DAILY Isosorbide Mononitrate (Imdur) 30 MG TAB.ER.24H 1 Tablet ORAL DAILY Qty = 30 Pantoprazole Sodium (Protonix) 20 MG TABLET.DR 1 Tablet ORAL DAILY BEFORE BREAKFAST CALCIUM CARBONATE/VITAMIN D3 (Calcium 600 + Vit D Tablet) 600 MG/400 IU TAB 1 Tablet ORAL DAILY Rosuvastatin Calcium (Crestor) 20 MG TABLET 1 Tablet ORAL DAILY Magnesium Oxide (Magnesium) 500 MG CAPSULE 1 Capsule ORAL DAILY Comments: Last Taken: 10/14/16 Time: 10AM Copies To: BLAIRE FONTENOT,ALEK Jackson
--- NOTE | 2016-10-14 23:32 | PN- Cardiology ---
Subjective Subjective: Feels well. Currently asymptomatic. Objective Vital Signs and I&Os Vital Signs Date Time Temp Pulse Resp B/P Pulse O2 O2 Flow FiO2 Ox Delivery Rate 10/14 1002 63 116/70 10/14 1001 63 116/70 10/14 1001 63 116/70 10/14 0801 97.8 63 18 116/70 95 Room Air 10/14 0800 Room Air Intake & Output 10/14 1600 10/14 0800 10/14 0000 10/13 1600 10/13 0800 10/13 0000 Intake Total 0 480 720 Output Total Balance 0 480 720 Intake, IV 0 Intake, Oral 0 480 720 Number 0 Bowel Movements Patient 215 lb 215 lb Weight Physical Exam: General: no apparent distress. Alert. Eyes: No obvious scleral icterus. HEENT: No jugular venous distention or abnormal jugular venous pulsations. Cardiovascular: Normal intensity S1/S2. PMI normal. Respiratory: Lungs clear to auscultation bilaterally. Abdomen: no guarding or rebound tenderness. Musculoskeletal: No clubbing or cyanosis noted, no edema Skin: Warm Neurologic: No gross focal deficits noted. Current Medications: Current Medications Sig/Bravo Start time Last Medication Dose Route Stop Time Status Admin Acetaminophen 650 MG Q6P PRN 10/13 0015 DCD PO Aspirin Buffered 81 MG DAILY 10/13 1000 DCD 10/13 PO 1115 Atorvastatin Calcium 80 MG 1700 10/13 1700 DCD 10/13 PO 1702 Diltiazem HCl 240 MG AT BEDTIME 10/13 0100 DCD 10/13 PO 2242 Enoxaparin Sodium 40 MG DAILY 10/14 1000 DCD SC Fish Oil 1,050 MG DAILY 10/13 1000 DCD 10/14 PO 1002 Influenza Virus 0.5 ML ONCE ONE 10/14 0815 DC 10/14 Vaccine IM 10/14 0816 1006 Isosorbide 30 MG DAILY 10/13 1000 DCD 10/13 Mononitrate PO 1115 Losartan Potassium 100 MG DAILY 10/13 1000 DCD 10/13 PO 1115 Magnesium Oxide 400 MG DAILY 10/13 1000 DCD 10/14 PO 1001 Montelukast Sodium 10 MG AT BEDTIME 10/13 0100 DCD 10/13 PO 2242 Omeprazole 40 MG DAILY AC 10/13 0700 DCD 10/14 PO 1005 Ranolazine 500 MG BID 10/13 0100 DCD 01/22 PO 2242 Results Last 48 Hrs of Labs/Mics: Laboratory Tests 10/14/16 0350: Anion Gap 10, Estimated GFR > 60, BUN/Creatinine Ratio 10.0, Triglycerides 131, Cholesterol 116, LDL Cholesterol, Calc 52 L, HDL Cholesterol 38 L, Cholesterol /HDL Ratio 3 10/13/16 0610: Troponin I < 0.01 10/13/16 0310: Troponin I < 0.01 Recent Imaging Studies: Telemetry tracings personally reviewed, shows SR Chest CT 1. Normal caliber thoracic aorta without evidence for acute dissection. 2. Large hiatal hernia. 3. Clear lungs. No pneumonia. 4. Stable pulmonary nodules compared to 08/11/2015. Assessment/Plan Assessment/Plan 1. Atypical chest discomfort/"early heart beats" similar to prior episodes 2. Known coronary artery disease, s/p remote complex PCI, last catheterization 2013 with mostly small vessel dx not amenable to repeat PCI 3. History of palpitations 4. Hypertension/HLD 5. Hx asthma 6. Hiatal hernia The patient's symptoms are atypical for ischemic etiology and similar symptoms in the past revealed small vessel disease on prior cath (2013) without repeat PCI. Troponins are negative (<0.10 x3) with stable blood pressure and no significant arrhythmias on telemetry. Primary complaint is the recent feeling of "early heart beats" which he has noted previously without clear sustained arrhythmia on monitor. Discussed dx/tx options at length and we agree with proceeding with additional non-invasive outpatient work-up at this time. Will obtain outpatient nuclear stress test (known CAD hx), Echo, and Holter. Discussed with medical team and we agree with the current plan. Patient to return to the ER via 911 with any new or recurrent symptoms. Continue outpatient cardiac meds. Follow-up in our office within 7 days (after cardiac testing this week). May need additional GI evaluation for the hiatal hernia which could be contributing to his symptoms. Ben Frias MD [facility] Continue telemetry? No
== END 2016-10-14 11:17 | DRG 313 ==
LOC: ENRESERVTM → ENRESERVDT → ERH 19:13 → ERHI 22:47 → 1NO 10-13 01:04
PROVIDERS: Emergency Medicine; Internal Medicine; ADMIT Internal Medicine
DX: R07.89 Other chest pain (principal); I25.2 Old myocardial infarction; I11.9 Hypertensive heart disease without heart failure; I25.10 Atherosclerotic heart disease of native coronary artery without angina pectoris; E78.5 Hyperlipidemia, unspecified; K21.9 Gastro-esophageal reflux disease without esophagitis; K44.9 Diaphragmatic hernia without obstruction or gangrene; Z95.5 Presence of coronary angioplasty implant and graft; J45.909 Unspecified asthma, uncomplicated
CPT/HCPCS: 1NSP; 6020; ERO; 36415; 82436; 90662; 93005; 93010; G0378; J1650; J3490